=== PATIENT | male | born 1995 | race African-American/Black ===

== ENCOUNTER 2018-10-16 23:53 | Emergency (ER) | payer OTHER ==
[~2018-10-16] VITALS: Ht 185.4 cm; Wt 73.5 kg
[2018-10-17] MEDS ORDERED: NAPROSYN500 MG PO (03:49)
[2018-10-17 04:07] VITALS: BP 124/78
== END 2018-10-17 04:09 | disposition home or self-care (01) ==
LOC: ER 23:53
DX: M25.562 Pain in left knee (principal); M25.572 Pain in left ankle and joints of left foot; F10.129 Alcohol abuse with intoxication, unspecified; Y90.9 Presence of alcohol in blood, level not specified